=== PATIENT | male | born 2000 | race Caucasian/White ===

== ENCOUNTER 2022-11-15 19:58 | Emergency (ER) | payer BC ==
[~2022-11-15] VITALS: Ht 182.9 cm; Wt 81.6 kg
--- NOTE | 2022-11-15 20:17 | NUR ---
Dr. Tyson evaluated patient at bedside. MSE in progress.
[2022-11-15] MEDS ORDERED: HYDR-4209 PO (20:24)
[2022-11-15] MEDS ORDERED: IBUP-1490 PO (20:24)
[2022-11-15] MEDS ORDERED: IBUPROFEN 600 MG TABLET PO ONE (20:30)
[2022-11-15] MEDS ORDERED: HYDR-3980 PO (20:35)
[2022-11-15] MEDS ORDERED: IBUPROFEN 600 MG TABLET ONE (20:38)
--- NOTE | 2022-11-15 20:41 | NUR ---
Patient discharged to home in stable condition. Written and verbal after care instructions given. Patient verbalizes understanding of instructions. Stressed follow up or return to ER for worsening s/s.
[2022-11-15 20:42] VITALS: BP 125/74
== END 2022-11-15 20:42 | disposition home or self-care (01) ==
LOC: ER 19:58
DX: M79.10 Myalgia, unspecified site (principal); Z79.1 Long term (current) use of non-steroidal anti-inflammatories (NSAID); Z79.899 Other long term (current) drug therapy
CPT/HCPCS: A4663

== ENCOUNTER 2024-12-30 19:40 | Emergency (ER) | payer BC ==
[~2024-12-30] VITALS: Ht 182.9 cm; Wt 82.6 kg
[~2024-12-30 19:40] MED LIST: HYDR-3980 PO; IBUP-1490 PO
[2024-12-30] MEDS ORDERED: SUMATRIPTAN SUCCINATE 6 MG/0.5 ML VIAL SQ ONE (20:40)
[2024-12-30] MEDS ORDERED: SUMA100T PO (20:40)
[2024-12-30] MEDS: SUMATRIPTAN SUCCINATE 6 MG/0.5 ML VIAL SQ ONE (21:31)
[2024-12-30 21:51] VITALS: BP 127/78; TEMP 98; O2SAT 95
== END 2024-12-30 21:51 | disposition home or self-care (01) ==
LOC: ER 19:46
DX: G43.909 Migraine, unspecified, not intractable, without status migrainosus (principal); R20.0 Anesthesia of skin; K58.9 Irritable bowel syndrome, unspecified; Z87.39 Personal history of other diseases of the musculoskeletal system and connective tissue
CPT/HCPCS: 99283; 96372; J3030; A4606; A4663